=== PATIENT | male | born 1965 | race Caucasian/White ===

== ENCOUNTER → 2018-08-29 | Day surgery (SDC) | payer BC ==
[~2018-08-29] MED LIST: ATORVASTATIN CA10 MG PO; BENICAR HCT 201 EACH PO; EPHEDRINE SULFATE INJ 50 MG/10 ML SYR ONE; FENTANYL CITRATE/PF 100MCG/2 ML INJ ONE; GLUCAGON FOR INJ 1 MG VIAL ONE; HYOSCYAMINE SULFATE 0.5 MG/ML INJ ONE; LIDOCAINE HCL 2% LOCAL INJ 5 ML SDV VIAL INJ ONE; LISINOPRIL PO; MIDAZOLAM HCL 2 MG/2 ML VIAL ONE; NEXIUM20 MG PO; PROPOFOL IV EMULSION 10 MG/ML 50 ML VIAL ONE
[2018-08-29 11:50] VITALS: BP 114/74
--- NOTE | 2018-08-29 14:36 | Operative Report ---
DATE OF PROCEDURE: August 29, 2018 REFERRING PHYSICIAN: Dr. Bay King. PROCEDURES PERFORMED: Esophagogastroduodenoscopy with biopsies and colonoscopy with polypectomy. INDICATIONS FOR ESOPHAGOGASTRODUODENOSCOPY: Heartburn and indigestion, history of Mendiola's esophagus. INDICATIONS FOR COLONOSCOPY: Colorectal cancer screening. MEDICATION: Patient was done under MAC. Please see anesthesiologist's note. PROCEDURE: With patient in the left lateral decubitus position, flexible fiberoptic Olympus gastroscope was introduced into the esophagus under direct visualization without any difficulty. There was some patchy erythema noted in the distal esophagus. A minute tongue of velvety red mucosa was noted to extend proximally from the GE junction and that was biopsied. The scope was advanced with ease into the stomach. Mucosa overlying the antrum and body revealed some patchy erythema and low-grade to moderate edema and biopsies were obtained and sent to stain for H. pylori. Pylorus appeared to be of normal contour and shape. It was intubated with ease and the scope was advanced all the way to the 2nd portion of the duodenum. The scope was then withdrawn slowly and mucosa overlying the proximal 2nd portion and the duodenal bulb appeared to be within normal limits. The scope was then withdrawn back into the stomach and retroflexed and mucosa overlying the fundus and the cardia appeared to be within normal limits. The scope was then straightened out. The stomach was decompressed. Scope was subsequently withdrawn. Patient tolerated the procedure well. IMPRESSION: 1. Distal esophagitis. 2. Mendiola's esophagus. 3. Gastritis, biopsied. Biopsy sent stain for H. pylori. PLAN: Follow up histology. Initiate Protonix 40 mg 1 p.o. q.a.m. a.c. PROCEDURE: Patient was then turned around and after adequate lubrication of the anal canal the flexible fiberoptic Olympus colonoscope was inserted into the rectum with ease and advanced all the way to the cecum. The scope was then withdrawn slowly. One polyp was cold biopsied from the cecum and 1 polyp was hot biopsied from the ascending colon. The transverse colon appeared to be within normal limits. One polyp was hot biopsied from the descending and polypectomy site was hemoclipped. Diverticular disease was noted scattered pretty much, but more prominent in the sigmoid colon. Five polyps were hot biopsied. Two polyps were snared from the sigmoid colon. Three polyps were snared and an 11 polyps were hot biopsied from the rectum. The scope was then retroflexed into the distal rectum and small internal hemorrhoids were noted, none of which was actively bleeding. The scope was then straightened out. It was subsequently withdrawn. Patient tolerated the procedure well. IMPRESSION 1. Cecal polyp, cold biopsied. 2. Ascending colon polyp, hot biopsied. 3. Descending colon polyp, hot biopsied and hemoclipped. 4. Diverticulosis. 5. Sigmoid colon polyps times 7, 5 hot biopsied and 2 snared. 6. Rectal polyps times 14 days, 11 hot biopsied and 3 snared. 7. Internal hemorrhoids, none actively bleeding PLAN: Follow up histology. Initiate high-fiber, low-fat diet. Initiate high-fiber supplement. A total of 24 polyps were removed. Patient will need a colonoscopy in 5 months to remove synchronous colorectal neoplasm. The patient has by definition hyper polyposis syndrome. Job#: [id number] cc: DR. BAY KING
== END | disposition home or self-care (01) ==
LOC: OR 07:54
PROVIDERS: ATTEND Internal Medicine Gastroenterology
DX: Z12.11 Encounter for screening for malignant neoplasm of colon (principal); K63.5 Polyp of colon; K62.1 Rectal polyp; K29.50 Unspecified chronic gastritis without bleeding; K21.0 Gastro-esophageal reflux disease with esophagitis; K22.70 Barrett's esophagus without dysplasia; K57.30 Diverticulosis of large intestine without perforation or abscess without bleeding; K64.8 Other hemorrhoids; I10 Essential (primary) hypertension; F17.210 Nicotine dependence, cigarettes, uncomplicated
CPT/HCPCS: 43239; 45380; 45384; 45385; J1610; J1980; J2001; J2250; 45378

== ENCOUNTER → 2019-05-23 | Day surgery (SDC) | payer BC ==
[~2019-05-23] MED LIST changes: -EPHEDRINE SULFATE INJ 50 MG/10 ML SYR ONE; -GLUCAGON FOR INJ 1 MG VIAL ONE; +HYOSCYAMINE 0.125 MG TAB ONE; -HYOSCYAMINE SULFATE 0.5 MG/ML INJ ONE; -LIDOCAINE HCL 2% LOCAL INJ 5 ML SDV VIAL INJ ONE
[2019-05-23 12:00] VITALS: BP 106/88
--- NOTE | 2019-05-23 16:03 | Operative Report ---
DATE OF PROCEDURE: 05/23/2019 SURGEON: Hunter Herbert MD PROCEDURE: Colonoscopy and polypectomy REFERRING PHYSICIAN: INDICATIONS FOR COLONOSCOPY: Surveillance colonoscopy, history of numerous colon polyps. MEDICATIONS: The patient was done under MAC, please see anesthesiologist's note. PROCEDURE IN DETAIL: With the patient in left lateral decubitus position, flexible fiberoptic Olympus colonoscope was inserted into the rectum with ease and advanced all the way to the cecum. A minute polyp was removed per cold biopsy forceps from the cecal pouch. It was then withdrawn slowly. Mucosa overlying the ascending colon, transverse colon appeared to be within normal limits. Two polyps were removed per hot biopsy forceps from the descending colon. Diverticulosis was noted in the descending as well as the sigmoid colon. Fifteen polyps were hot biopsied and one polyp was snared from the sigmoid colon and 20 polyps were removed per hot biopsy forceps from the rectum. The scope was then retroflexed into the distal rectum and small internal hemorrhoids were noted, none of which was actively bleeding. The scope was then straightened out, it was subsequently withdrawn. The patient tolerated the procedure well. IMPRESSION: 1. Cecal polyp x1, removed per cold biopsy forceps. 2. Descending colon polyps x2, hot biopsied. 3. Diverticulosis. 4. Sigmoid colon polyps x16, 15 removed per hot biopsy forceps and 1 was snared. 5. Rectal polyps x20, hot biopsied. 6. Internal hemorrhoids, none actively bleeding. A total of 39 polyps were removed. PLAN: Follow up histology. Initiate high-fiber, low-fat diet. Initiate high-fiber supplement. The patient might benefit from a followup colonoscopy in one year. MD ADRIENNE Alvares/DAGO /[id number] cc: Dr. Garrido
== END | disposition home or self-care (01) ==
LOC: OR 07:45
PROVIDERS: ATTEND Internal Medicine Gastroenterology
DX: Z12.11 Encounter for screening for malignant neoplasm of colon (principal); Z86.010 Personal history of colon polyps; Z01.810 Encounter for preprocedural cardiovascular examination; I10 Essential (primary) hypertension; K21.9 Gastro-esophageal reflux disease without esophagitis; K63.5 Polyp of colon; K57.30 Diverticulosis of large intestine without perforation or abscess without bleeding; K62.1 Rectal polyp; K64.8 Other hemorrhoids
CPT/HCPCS: 45380; 45384; 45385; 93005; J2250; J2704; J3010; 45378

== ENCOUNTER → 2021-08-05 | Day surgery (SDC) | payer BC, OTHER ==
[~2021-08-05] MED LIST changes: +AMLODIPINE BESY10 MG PO; +GLUCAGON FOR INJ 1 MG VIAL ONE; -HYOSCYAMINE 0.125 MG TAB ONE; +HYOSCYAMINE SULFATE 0.5 MG/ML INJ ONE; +LIDOCAINE HCL 2% LOCAL INJ 5 ML SDV VIAL INJ ONE; +PROPOFOL IV EMULSION 10 MG/ML 20 ML VIAL ONE; -PROPOFOL IV EMULSION 10 MG/ML 50 ML VIAL ONE; +VALSARTAN/HCTZ
[2021-08-05 11:05] VITALS: BP 136/88
[2021-08-05 12:13] LABS: WBC,FECAL (FECAL LACTOFERRIN) NEGATIVE (NEGATIVE)
[2021-08-05 15:03] LABS: C DIFFICILE TOXIN A&B AMP PROB NEGATIVE (NEGATIVE)
== END | disposition home or self-care (01) ==
LOC: OR 07:11
PROVIDERS: ATTEND Internal Medicine Gastroenterology
DX: K22.70 Barrett's esophagus without dysplasia (principal); K63.5 Polyp of colon; K29.50 Unspecified chronic gastritis without bleeding; K21.00 Gastro-esophageal reflux disease with esophagitis, without bleeding; K31.89 Other diseases of stomach and duodenum; K62.89 Other specified diseases of anus and rectum; K44.9 Diaphragmatic hernia without obstruction or gangrene; K57.30 Diverticulosis of large intestine without perforation or abscess without bleeding; K64.8 Other hemorrhoids; I10 Essential (primary) hypertension; E78.5 Hyperlipidemia, unspecified; F17.210 Nicotine dependence, cigarettes, uncomplicated; Z01.810 Encounter for preprocedural cardiovascular examination; Z01.812 Encounter for preprocedural laboratory examination; Z20.822 Contact with and (suspected) exposure to COVID-19; Z79.899 Other long term (current) drug therapy
CPT/HCPCS: 43239; 45380; 45384; 45385; 83630; 83993; 87045; 87177; 87328; 87493; 93005; C9113; J1610; J1980; J2001; J2250; J2704; J3010; U0002; 45378